=== PATIENT | female | born 1950 | race Caucasian/White ===

== ENCOUNTER → 2019-12-28 | Outpatient (CLI) | payer MEDICARE ==
[~2019-12-28] MED LIST: AMLO10TA8 PO; BUSP15TA PO; CALC-126 PO; CRAN500C PO; CYCL1DRO EACHEYE; DENO60DI INJ; MULT-658 PO; OMEG-76 PO; OXYC-302 PO; PRAV40TA2 PO; TELM40TA PO; TURM500C4 PO; VITA400C43 PO
[2019-12-28 15:22] LABS: BASOPHILS # (AUTO) 0.03 x10^3/uL (0-0.1); BASOPHILS % (AUTO) 0 % (0-1); EOSINOPHILS # (AUTO) 0.17 x10^3/uL (0-0.4); EOSINOPHILS % (AUTO) 2 % (1-7); LYMPHOCYTES % (AUTO) 34 % (22-44); MD NO; MEAN CORPUSCULAR HEMOGLOBIN 31.8 pg (27.0-34.8); MEAN CORPUSCULAR VOLUME 93.5 fL (80-100); MEAN PLATELET VOLUME 8.2 fL (7.4-10.4); MONOCYTES # (AUTO) 0.42 x10^3/uL (0.2-0.8); MONOCYTES % (AUTO) 5 % (2-9); NEUTROPHILS # (AUTO) 4.65 x10^3/uL (1.8-6.8); NEUTROPHILS % (AUTO) 58 % (42-75); PLATELET COUNT 225 x10^3/uL (130-400); RED BLOOD COUNT 4.84 x10^6/uL (3.82-5.3); RED CELL DISTRIBUTION WIDTH 13.4 % (9.6-15.2)
[2019-12-28 15:36] LABS: ALBUMIN 4.2 g/dL (3.4-5.0); ANION GAP 8 mmol/L (5-15); CALCIUM 9.7 mg/dL (8.5-10.1); CHLORIDE 99 mmol/L (98-107)
[2019-12-28 15:40] LABS: ALANINE AMINOTRANSFERASE 53 U/L (12-78); ALKALINE PHOSPHATASE 83 U/L (45-117); BILIRUBIN,TOTAL 0.4 mg/dL (0.2-1.0); CREATININE 0.95 mg/dL (0.55-1.02); TOTAL PROTEIN 8.2 g/dL (6.4-8.2)
== END | disposition home or self-care (01) ==
LOC: STAR 13:52
PROVIDERS: ATTEND Surgery
DX: Z01.818 Encounter for other preprocedural examination (principal); C50.812 Malignant neoplasm of overlapping sites of left female breast; Z88.0 Allergy status to penicillin; Z88.8 Allergy status to other drugs, medicaments and biological substances
CPT/HCPCS: 36415; 80053; 85025; 93005

== ENCOUNTER 2020-01-03 19:26 | Day surgery (SDC) | payer MEDICARE ==
[~2020-01-03] VITALS: Ht 157.5 cm; Wt 65.6 kg
[2020-01-03 12:14] VITALS: BP 104/71
[2020-01-03] MEDS: FENTANYL PF 100 MCG/2ML IV PRN ×3 (18:15→18:36)
[2020-01-03] MEDS: HYDROmorphone 2 MG/ML, 1ML IVPush PRN ×3 (18:18→18:45)
[~2020-01-03 19:26] MED LIST changes: +ACETAMINOPHEN 500 MG TABLET PO ONE; +BACITRACIN 50,000 UNIT ONE; +BUPIVACAINE/PF 0.25% ONE; +BUPIVACAINE/PF 0.5% ONE; +CEFAZOLIN 1,000 MG ONE; +DEXAMETHASONE 4 MG/ML, 1ML ONE; +EPINEPHRINE 1 MG/ML, 1ML ONE; +FENTANYL PF 100 MCG/2ML ONE; +FENTANYL PF 250 MCG/5ML ONE; +GABAPENTIN 300 MG CAPSULE PO ONE; +GENTAMICIN 80 MG/2 ML ONE; +GLYCOPYRROLATE 0.2MG/1ML, 5ML ONE; +HALOPERIDOL 5 MG/ML IV PRN; +HYDROmorphone 1 MG/ML, 1ML INJ ONE; +ISOSULFAN BLUE 10 MG/ML, 5ML IV ONE; +LABETALOL 5MG/ML, 20ML IV PRN; +LACTATED RINGERS 1,000 ML IV SCH; +LIDOCAINE-MPF 1%, 2ML INFIL ONE; +MEPERIDINE/PF 25MG/ML,1ML IVPush PRN; +MORPHINE SULFATE 4 MG/ML, 1ML IVPush PRN; +NEOSTIGMINE 1 MG/ML, 10ML ONE; +ONDANSETRON 2MG/ML, 2ML ONE; +OXYcodone 5 MG/5 ML ORAL.SOL UDC PO PRN; +PHENYLEPHRINE 10 MG/ML ONE; +PROMETHAZINE 25 MG/ML, 1ML IV PRN; +PROPOFOL 10 MG/ML, 20ML ONE; +ROCURONIUM 10MG/ML,5ML ONE; +hydrALAzine 20 MG/ML, 1ML IV PRN
[2020-01-03] MEDS ORDERED: HYDROmorphone 2 MG/ML, 1ML IVPush PRN (20:00)
[2020-01-03] MEDS ORDERED: DIPHENHYDRAMINE 25 MG CAPSULE PO PRN (20:00)
[2020-01-03] MEDS ORDERED: SODIUM CHLORIDE 0.9%, 500ML IV PRN (20:00)
[2020-01-03] MEDS ORDERED: LORazepam 1MG TABLET PO PRN (20:00)
[2020-01-03] MEDS ORDERED: ACETAMINOPHEN 650 MG SUPP PR PRN (20:00)
[2020-01-03] MEDS ORDERED: ACETAMINOPHEN 325 MG TABLET PO PRN (20:00)
[2020-01-03] MEDS ORDERED: DIPHENHYDRAMINE 50 MG/ML, 1ML IV PRN (20:00)
[2020-01-03] MEDS ORDERED: CEFAZOLIN PMX 2GM/50ML 50 ML IVPB SCH (20:00)
[2020-01-03] MEDS ORDERED: D5%-LACTATED RINGERS 1,000 ML IV SCH (20:00)
[2020-01-03] MEDS ORDERED: hydrALAzine 20 MG/ML, 1ML IV PRN (20:00)
[2020-01-03] MEDS ORDERED: LORazepam 2 MG/ML, 1ML IV PRN (20:00)
[2020-01-03] MEDS ORDERED: LACTATED RINGERS 500 ML IV PRN (20:00)
[2020-01-03] MEDS ORDERED: ONDANSETRON 2MG/ML, 2ML IV PRN (20:00)
[2020-01-03 20:01] VITALS: BP 111/74
[2020-01-03] MEDS ORDERED: PRAVASTATIN 40 MG TABLET PO SCH (21:00)
[2020-01-03] MEDS: BUSPIRONE 5 MG TABLET PO SCH ×2 (22:15→22:19)
[2020-01-03] MEDS: OXYcodone/APAP 5/325MG TABLET PO PRN (22:58)
[2020-01-04 00:13] VITALS: BP 123/85
[2020-01-04] MEDS ORDERED: OXYcodone/APAP 5/325MG TABLET ONE (03:19)
[2020-01-04] MEDS: OXYcodone/APAP 5/325MG TABLET PO PRN (03:21)
[2020-01-04 03:45] VITALS: BP 116/75
[2020-01-04] MEDS ORDERED: OXYcodone/APAP 5/325MG TABLET PO PRN (04:00)
[2020-01-04] MEDS ORDERED: LORazepam 0.5MG TABLET PO PRN (04:00)
[2020-01-04] MEDS ORDERED: hydrALAzine 20 MG/ML, 1ML IV PRN (04:00)
[2020-01-04] MEDS ORDERED: ONDANSETRON 2MG/ML, 2ML IVPush PRN (04:00)
[2020-01-04] MEDS ORDERED: HYDROmorphone 1 MG/ML, 1ML INJ IV PRN (04:00)
[2020-01-04] MEDS ORDERED: LORazepam 2 MG/ML, 1ML IVPush PRN (04:00)
[2020-01-04] MEDS ORDERED: ACETAMINOPHEN 325 MG TABLET PO PRN (04:00)
[2020-01-04] MEDS ORDERED: CEFAZOLIN 2,000 MG in SODIUM CHLORIDE 0.9% 50 ML IV ONE ×2 (04:00→08:00)
[2020-01-04] MEDS ORDERED: ACETAMINOPHEN 650 MG SUPP PR PRN (04:00)
[2020-01-04] MEDS ORDERED: DIPHENHYDRAMINE 50 MG/ML, 1ML IVPush PRN (04:00)
[2020-01-04 06:22] VITALS: BP 118/74
[2020-01-04] MEDS ORDERED: D5%-LACTATED RINGERS 1,000 ML IV SCH (08:00)
[2020-01-04] MEDS ORDERED: AMLODIPINE 5 MG TABLET PO SCH (09:00)
[2020-01-04] MEDS ORDERED: LOSARTAN 50MG TABLET PO SCH (09:00)
[2020-01-04] MEDS ORDERED: CALCIUM/VITAMIN D3 250-125 TABLET PO SCH ×2 (09:00)
[2020-01-04] MEDS ORDERED: CYCLOSPORINE OP SCH (09:00)
[2020-01-04] MEDS ORDERED: VITAMIN E 400 UNITS CAPSULE PO SCH ×2 (09:00)
[2020-01-04] MEDS ORDERED: AMLODIPINE 10 MG TAB PO SCH (09:00)
[2020-01-04] MEDS ORDERED: BUSPIRONE 5 MG TABLET PO SCH (09:00)
[2020-01-04] MEDS ORDERED: RESTASIS OP SCH (09:00)
[2020-01-04] MEDS ORDERED: MULTIVITAMIN 1 TABLET PO SCH ×2 (09:00)
[2020-01-04] MEDS ORDERED: OMEGA-3/FISH OIL CAPSULE PO SCH ×2 (09:00)
[2020-01-04] MEDS ORDERED: OXYC-302 PO (09:01)
[2020-01-04] MEDS ORDERED: HEPARIN 5,000 UNITS/ML, 1ML SQ SCH ×2 (17:00)
[2020-01-04] MEDS ORDERED: PRAVASTATIN 40 MG TABLET PO SCH (21:00)
== END 2020-01-04 12:39 | disposition home or self-care (01) ==
LOC: 4NE 19:26 → OUT 19:26 → UNDOADMIN 19:26 → OR 19:26 → DCLOUNGE 01-04 12:28 → 4NE 01-04 12:28 → OR 01-04 12:39 → UNDODISIN 01-04 12:39
PROVIDERS: ATTEND Surgery
DX: C50.912 Malignant neoplasm of unspecified site of left female breast (principal); C77.3 Secondary and unspecified malignant neoplasm of axilla and upper limb lymph nodes; N62 Hypertrophy of breast; F41.9 Anxiety disorder, unspecified; I10 Essential (primary) hypertension; E78.5 Hyperlipidemia, unspecified; M19.90 Unspecified osteoarthritis, unspecified site; Z17.0 Estrogen receptor positive status [ER+]; Z79.899 Other long term (current) drug therapy; Z85.828 Personal history of other malignant neoplasm of skin; Z88.0 Allergy status to penicillin; Z88.5 Allergy status to narcotic agent; Z98.1 Arthrodesis status; Z82.49 Family history of ischemic heart disease and other diseases of the circulatory system
CPT/HCPCS: 15570; 15777; 19303; 19357; 38525; 38792; 88307; 88342; A9541; C1729; C1762; C1789; J0171; J0690; J1100; J1170; J1580; J2370; J2405; J2704; J2710; J3010; J7120; J7121; G0378; J3490

== ENCOUNTER 2020-01-31 07:16 | Outpatient (CLI) | payer MEDICARE ==
[~2020-01-31 07:16] MED LIST changes: -ACETAMINOPHEN 500 MG TABLET PO ONE; -BACITRACIN 50,000 UNIT ONE; -BUPIVACAINE/PF 0.25% ONE; -BUPIVACAINE/PF 0.5% ONE; -CEFAZOLIN 1,000 MG ONE; -DEXAMETHASONE 4 MG/ML, 1ML ONE; -EPINEPHRINE 1 MG/ML, 1ML ONE; -FENTANYL PF 100 MCG/2ML ONE; -FENTANYL PF 250 MCG/5ML ONE; -GABAPENTIN 300 MG CAPSULE PO ONE; -GENTAMICIN 80 MG/2 ML ONE; -GLYCOPYRROLATE 0.2MG/1ML, 5ML ONE; -HALOPERIDOL 5 MG/ML IV PRN; -HYDROmorphone 1 MG/ML, 1ML INJ ONE; -ISOSULFAN BLUE 10 MG/ML, 5ML IV ONE; -LABETALOL 5MG/ML, 20ML IV PRN; -LACTATED RINGERS 1,000 ML IV SCH; -LIDOCAINE-MPF 1%, 2ML INFIL ONE; -MEPERIDINE/PF 25MG/ML,1ML IVPush PRN; -MORPHINE SULFATE 4 MG/ML, 1ML IVPush PRN; -NEOSTIGMINE 1 MG/ML, 10ML ONE; -ONDANSETRON 2MG/ML, 2ML ONE; -OXYcodone 5 MG/5 ML ORAL.SOL UDC PO PRN; -PHENYLEPHRINE 10 MG/ML ONE; -PROMETHAZINE 25 MG/ML, 1ML IV PRN; -PROPOFOL 10 MG/ML, 20ML ONE; -ROCURONIUM 10MG/ML,5ML ONE; -hydrALAzine 20 MG/ML, 1ML IV PRN
== END 2020-01-31 23:59 | disposition home or self-care (01) ==
LOC: ROC 07:16
PROVIDERS: ATTEND Radiology Radiation Oncology
DX: C50.812 Malignant neoplasm of overlapping sites of left female breast (principal)
CPT/HCPCS: 99214; G0463

== ENCOUNTER → 2020-02-01 | Outpatient (CLI) | payer MEDICARE | END | disposition home or self-care (01) | LOC: CFH 08:46 | PROVIDERS: ATTEND Internal Medicine Hematology & Oncology | DX: C50.812 Malignant neoplasm of overlapping sites of left female breast (principal); M47.816 Spondylosis without myelopathy or radiculopathy, lumbar region; I71.4 Abdominal aortic aneurysm, without rupture; J43.9 Emphysema, unspecified; Z90.13 Acquired absence of bilateral breasts and nipples | CPT/HCPCS: 71046; 76700; 78306; A9503 ==

== ENCOUNTER 2020-05-11 08:19 | Outpatient (CLI) | payer MEDICARE | END 2020-05-11 23:59 | disposition home or self-care (01) | LOC: ROC 08:19 | PROVIDERS: ATTEND Radiology Radiation Oncology | DX: Z08 Encounter for follow-up examination after completed treatment for malignant neoplasm (principal); C50.412 Malignant neoplasm of upper-outer quadrant of left female breast | CPT/HCPCS: 99212; G0463 ==

== ENCOUNTER 2021-04-13 13:31 | Outpatient (CLI) | payer MEDICARE ==
[~2021-04-13 13:31] MED LIST changes: +AMLO-211 PO; -AMLO10TA8 PO; -OXYC-302 PO; +OXYC1TAB14 PO
[2021-04-13] MEDS ORDERED: MIRT-15 PO (14:13)
[2021-04-13] MEDS ORDERED: LETR2.5T3 PO (14:13)
[2021-04-13] MEDS ORDERED: BUSP15TA PO (14:13)
[2021-04-13 14:44] LABS: BASOPHILS % (AUTO) 1 % (0-1); EOSINOPHILS % (AUTO) 2 % (1-7); LYMPHOCYTES % (AUTO) 23 % (22-44); MEAN CORPUSCULAR HEMOGLOBIN 31.7 pg (27.0-34.8); MEAN CORPUSCULAR HGB CONC 33.7 g/dL (32.4-35.8); MEAN PLATELET VOLUME 7.7 fL (7.4-10.4); MONOCYTES % (AUTO) 9 % (2-9); NEUTROPHILS % (AUTO) 65 % (42-75); PLATELET COUNT 214 x10^3/uL (130-400); RED BLOOD COUNT 4.83 x10^6/uL (3.82-5.3); RED CELL DISTRIBUTION WIDTH 13.5 % (9.6-15.2)
== END 2021-04-13 23:59 | disposition home or self-care (01) ==
LOC: STAR 13:31
PROVIDERS: ATTEND Plastic Surgery
DX: Z01.812 Encounter for preprocedural laboratory examination (principal); Z20.822 Contact with and (suspected) exposure to COVID-19; C50.812 Malignant neoplasm of overlapping sites of left female breast; R94.31 Abnormal electrocardiogram [ECG] [EKG]; Z85.3 Personal history of malignant neoplasm of breast; Z85.828 Personal history of other malignant neoplasm of skin
CPT/HCPCS: 36415; 85025; 93005; U0003; U0005

== ENCOUNTER 2021-04-19 07:24 | Day surgery (SDC) | payer MEDICARE ==
[~2021-04-19] VITALS: Ht 154.9 cm; Wt 66.8 kg
[~2021-04-19 07:24] MED LIST changes: +LETR2.5T3 PO; +MIRT30TA4 PO
[2021-04-19 07:58] VITALS: BP 109/75
[2021-04-19] MEDS ORDERED: CHLORHEXIDINE 15 ML UDC PO ONE (08:00)
[2021-04-19] MEDS ORDERED: LACTATED RINGERS 1,000 ML IV SCH (08:00)
[2021-04-19] MEDS ORDERED: LIDOCAINE-MPF 1%, 2ML INFIL ONE (08:00)
[2021-04-19] MEDS ORDERED: CHLORHEXIDINE 15 ML UDC ONE (08:07)
[2021-04-19] MEDS ORDERED: FENTANYL PF 100 MCG/2ML ONE (08:26)
[2021-04-19] MEDS ORDERED: MIDAZOLAM 1 MG/ML, 2ML ONE (08:26)
[2021-04-19] MEDS ORDERED: SUCCINYLCHOLINE 20 MG/ML, 10ML ONE (08:30)
[2021-04-19] MEDS ORDERED: GLYCOPYRROLATE 0.2MG/1ML, 5ML ONE (08:30)
[2021-04-19] MEDS ORDERED: NEOSTIGMINE 1 MG/ML, 10ML ONE (08:30)
[2021-04-19] MEDS ORDERED: DEXAMETHASONE 4 MG/ML, 1ML ONE (08:30)
[2021-04-19] MEDS ORDERED: PROPOFOL 10 MG/ML, 20ML ONE (08:30)
[2021-04-19] MEDS ORDERED: ONDANSETRON 2MG/ML, 2ML ONE (08:30)
[2021-04-19] MEDS ORDERED: CEFAZOLIN 1,000 MG ONE ×2 (08:30→09:38)
[2021-04-19] MEDS ORDERED: ROCURONIUM 10MG/ML,5ML ONE (08:30)
[2021-04-19] MEDS ORDERED: FENTANYL PF 100 MCG/2ML IV PRN (09:00)
[2021-04-19] MEDS ORDERED: ONDANSETRON 2MG/ML, 2ML IVPush PRN (09:00)
[2021-04-19] MEDS ORDERED: PROMETHAZINE 25 MG/ML, 1ML IVPush PRN (09:00)
[2021-04-19] MEDS ORDERED: ACETAMINOPHEN 325 MG TABLET PO PRN (09:00)
[2021-04-19] MEDS ORDERED: OXYcodone 5 MG/5 ML ORAL.SOL UDC PO PRN (09:00)
[2021-04-19] MEDS ORDERED: HYDROcodone/APAP 7.5-325MG/15ML UDC PO PRN (09:00)
[2021-04-19] MEDS ORDERED: HYDROmorphone 1 MG/ML, 1ML INJ IVPush PRN (09:00)
[2021-04-19] MEDS ORDERED: MEPERIDINE/PF 25MG/0.5ML IVPush PRN (09:00)
[2021-04-19] MEDS ORDERED: BUPIVACAINE/PF 0.5% ONE (09:37)
[2021-04-19] MEDS ORDERED: SODIUM BICARBONATE 1 MEQ/ML, 50ML VIAL ONE (09:38)
[2021-04-19] MEDS ORDERED: LIDOCAINE-MPF 2% ,5ML ONE (09:38)
[2021-04-19] MEDS ORDERED: GENTAMICIN 80 MG/2 ML ONE (09:38)
[2021-04-19] MEDS ORDERED: BACITRACIN 50,000 UNIT ONE (09:38)
[2021-04-19] MEDS ORDERED: EPINEPHRINE 1 MG/ML, 1ML ONE (09:38)
[2021-04-19] MEDS ORDERED: PROPOFOL 50 ML ONE (09:42)
[2021-04-19] MEDS ORDERED: EPHEDRINE 50 MG/ML, 1ML ONE (10:05)
== END 2021-04-19 15:00 | disposition home or self-care (01) ==
LOC: OUT 07:24
PROVIDERS: ATTEND Plastic Surgery
DX: Z45.812 Encounter for adjustment or removal of left breast implant (principal); I10 Essential (primary) hypertension; F32.9 Major depressive disorder, single episode, unspecified; F41.9 Anxiety disorder, unspecified; Z79.899 Other long term (current) drug therapy; Z85.3 Personal history of malignant neoplasm of breast; Z88.0 Allergy status to penicillin; Z88.2 Allergy status to sulfonamides; Z88.5 Allergy status to narcotic agent; Z90.13 Acquired absence of bilateral breasts and nipples; Z92.3 Personal history of irradiation; Z82.49 Family history of ischemic heart disease and other diseases of the circulatory system
CPT/HCPCS: 11970; 15570; 15771; 15772; C1729; C1789; J0171; J0330; J0690; J1100; J1580; J2250; J2405; J2704; J2710; J3010; J7120

== ENCOUNTER → 2021-05-23 | Outpatient (CLI) | payer MEDICARE ==
[~2021-05-23] MED LIST changes: +MIRT-15 PO; -MIRT30TA4 PO
== END | disposition home or self-care (01) ==
LOC: ROC 11:41
PROVIDERS: ATTEND Radiology Radiation Oncology
DX: Z08 Encounter for follow-up examination after completed treatment for malignant neoplasm (principal); Z85.3 Personal history of malignant neoplasm of breast; F41.9 Anxiety disorder, unspecified; I10 Essential (primary) hypertension; F32.9 Major depressive disorder, single episode, unspecified; Z79.899 Other long term (current) drug therapy
CPT/HCPCS: 99212; G0463